=== PATIENT | female | born 1965 | race Asian ===

== ENCOUNTER 2023-08-30 06:04 | Emergency (ER) | payer OTHER ==
[~2023-08-30] VITALS: Ht 162.6 cm; Wt 68.2 kg
[2023-08-30 06:11] VITALS: TEMP 97.9
[2023-08-30] MEDS ORDERED: METF-1211 PO (06:14)
[2023-08-30] MEDS ORDERED: METO25XL PO (06:14)
[2023-08-30] MEDS ORDERED: ASPI-1444 PO (06:15)
[2023-08-30] MEDS ORDERED: METO25 PO (06:15)
[2023-08-30] MEDS ORDERED: ONDANSETRON HCL 4 MG TABLET PO ONE (06:30)
[2023-08-30] MEDS ORDERED: ACETAMINOPHEN 325 MG TABLET PO ONE (06:30)
[2023-08-30 06:32] VITALS: BP 140/85; PULSE 75; RESP 16
[2023-08-30 06:56] LABS: BASOPHILS % (AUTO) 0.7 % (0.0-2.0); EOSINOPHILS % (AUTO) 2.3 % (1.0-6.0); HEMATOCRIT 35.1 % (36-46); HEMOGLOBIN 11.6 g/dL (12.0-16.0); LYMPHOCYTES # (AUTO) 2.5 K/uL (1.0-4.8); LYMPHOCYTES % (AUTO) 36.7 % (22.0-44.0); MEAN CORPUSCULAR HEMOGLOBIN 25.7 pg (26.0-34.0); MEAN CORPUSCULAR HGB CONC 33.1 G/dL (31.0-37.0); MEAN CORPUSCULAR VOLUME 78 fL (80-100); MONOCYTES # (AUTO) 0.7 K/uL (0.1-1.0); MONOCYTES % (AUTO) 10.2 % (2.0-9.0); NEUTROPHILS # (AUTO) 3.4 K/uL (1.8-7.7); NEUTROPHILS % (AUTO) 50.1 % (40.0-70.0); PLATELET COUNT (AUTO) 374 K/uL (150-450); RED BLOOD CELL COUNT(AUTO) 4.54 MIL/uL (4.00-5.20); RED CELL DISTRIBUTION WIDTH 13.9 % (11.5-14.5); WHITE BLOOD COUNT (AUTO) 6.8 K/uL (4.5-11.0)
[2023-08-30 07:06] LABS: CALCIUM, TOTAL 8.9 mg/dL (8.8-10.5); CREATININE 0.97 mg/dL (0.60-1.30); POTASSIUM 3.6 mmol/L (3.5-5.1)
[2023-08-30 07:12] LABS: ALBUMIN 3.8 g/dL (3.4-5.0); BILIRUBIN,TOTAL 0.7 mg/dL (0.1-1.0); TOTAL PROTEIN, SERUM 7.9 g/dL (6.4-8.2)
[2023-08-30 07:13] LABS: TROPONIN I-HIGH SENSITIVITY 8 ng/L (<51)
[2023-08-30] MEDS ORDERED: ONDA-104 PO (07:19)
== END 2023-08-30 07:30 | disposition home or self-care (01) ==
LOC: EMS 06:07
DX: I10 Essential (primary) hypertension (principal); E11.9 Type 2 diabetes mellitus without complications
CPT/HCPCS: 99284; 80053; 84484; 85025; 36415; 93005; Q0162